=== PATIENT | male | born 1975 | race Caucasian/White ===

== ENCOUNTER → 2016-09-19 | Outpatient (CLI) | payer OTHER ==
[~2016-09-19] MED LIST: LEVO25TABR OR; OMEP20TA7 OR; SERO400T OR
[2016-09-19 12:48] LABS: FREE T4 1.55 NG/DL (0.76-1.46)
== END ==
LOC: M LAB 11:19
PROVIDERS: ATTEND Physician Assistant Medical
DX: E04.1 Nontoxic single thyroid nodule (principal)

== ENCOUNTER → 2016-12-23 | Outpatient (CLI) | payer OTHER ==
[2016-12-23 11:25] LABS: FREE T4 1.25 NG/DL (0.76-1.46)
== END ==
LOC: M LAB 10:06
PROVIDERS: ATTEND Physician Assistant Medical
DX: R94.6 Abnormal results of thyroid function studies (principal)

== ENCOUNTER 2019-01-25 15:21 | Inpatient (IN) | payer OTHER ==
[~2019-01-25] VITALS: Ht 170.2 cm; Wt 66.1 kg
[~2019-01-25 15:21] MED LIST changes: +BIMA01SOL OP; +BIMA01SOL OU; +DEPA1TAB PO; +DEPA500T2 PO; +HYDRO50TAB PO; +KLON1TAB PO; +LITH300C PO; +PROP10TA55 PO; +SYNT125T PO; +TRAZO50TA PO; +XANA0.25 PO
[2019-01-25] MEDS ORDERED: LEVO125T4 PO (15:31)
[2019-01-25] MEDS ORDERED: ROSU10TA5 PO (15:31)
[2019-01-25] MEDS ORDERED: DIVA250T67 PO (15:31)
[2019-01-25] MEDS ORDERED: CLON1TAB8 PO (15:31)
[2019-01-25 16:36] LABS: HEMATOCRIT 46.9 % (42.0-52.0); HEMOGLOBIN 15.9 g/dl (13.5-17.5); MEAN CORPUSCULAR HEMOGLOBIN 32.9 pg (27.0-33.0); MEAN CORPUSCULAR HGB CONC 33.9 g/dl (32.0-36.5); MEAN CORPUSCULAR VOLUME 96.9 fl (80.0-96.0); PLATELET COUNT, AUTOMATED 453 10^3/uL (150-450); RED BLOOD COUNT 4.84 10^6/uL (4.30-6.10); WHITE BLOOD COUNT 9.2 10^3/uL (4.0-10.0)
[2019-01-25 16:49] LABS: ACETAMINOPHEN LEVEL < 2.0 UG/ML (10.0-30.0); ALBUMIN 4.2 GM/DL (3.2-5.2); ALT/SGPT 19 U/L (12-78); BILIRUBIN,DIRECT 0.1 MG/DL (0.0-0.2); BILIRUBIN,TOTAL 0.5 MG/DL (0.2-1.0); BLOOD UREA NITROGEN 10 MG/DL (7-18); CALCIUM LEVEL 8.5 MG/DL (8.5-10.1); CARBON DIOXIDE LEVEL 25 MEQ/L (21-32); CHLORIDE LEVEL 105 MEQ/L (98-107); CREATININE FOR GFR 0.88 MG/DL (0.70-1.30); ETHYL ALCOHOL (ETHANOL) 0.317 % (0.000-0.010); GLOMERULAR FILTRATION RATE > 60.0 (>60); GLUCOSE, FASTING 94 MG/DL (70-100); POTASSIUM SERUM 3.8 MEQ/L (3.5-5.1); SALICYLATE LEVEL 1.8 MG/DL (5.0-30.0); SODIUM LEVEL 139 MEQ/L (136-145)
[2019-01-25 18:04] LABS: AMPHETAMINES LEVEL URINE NEGATIVE (NEGATIVE); BARBITURATES URINE NEGATIVE (NEGATIVE); BENZODIAZEPINES URINE NEGATIVE (NEGATIVE); CANNABINOIDS URINE NEGATIVE (NEGATIVE); COCAINE METABOLITE URINE NEGATIVE (NEGATIVE); METHADONE URINE NEGATIVE (NEGATIVE); OPIATES URINE NEGATIVE (NEGATIVE); PHENCYCLIDINE URINE NEGATIVE (NEGATIVE)
[2019-01-25] MEDS ORDERED: clonazePAM 1 MG TAB PO ONE (20:15)
[2019-01-26] MEDS ORDERED: LEVOTHYROXINE 125MCG TABLET (0.125MG) PO SCH (06:00)
[2019-01-26] MEDS: LEVOTHYROXINE 125MCG TABLET (0.125MG) PO SCH (08:30)
[2019-01-26] MEDS ORDERED: clonazePAM 1 MG TAB PO ONE (08:30)
[2019-01-26] MEDS ORDERED: LEVOTHYROXINE 125MCG TABLET (0.125MG) As Ordered ONE (08:49)
[2019-01-26] MEDS ORDERED: DIVALPROEX 250 MG TAB PO ONE (09:00)
[2019-01-26] MEDS ORDERED: NICOTINE 21MG/24HR 1 EA TRANSDERMAL TD ONE (11:45)
[2019-01-26] MEDS ORDERED: MAALOX 30 ML SUSP *UDC PO PRN (12:00)
[2019-01-26] MEDS ORDERED: ACETAMINOPHEN TAB 650MG DOSE (2X325MG) PO PRN (12:00)
[2019-01-26] MEDS ORDERED: MOM 30ML SUSPENSION UDC PO PRN (12:00)
[2019-01-26 14:02] VITALS: BP 123/74
[2019-01-26 18:06] VITALS: BP 112/59
[2019-01-26] MEDS: NICOTINE 21MG/24HR 1 EA TRANSDERMAL TD SCH (21:12)
[2019-01-26] MEDS: hydrOXYzine 50 MG TAB PO PRN (21:35)
[2019-01-26 21:43] VITALS: BP 136/81
[2019-01-27] MEDS ORDERED: LEVOTHYROXINE 125MCG TABLET (0.125MG) PO SCH (06:00)
[2019-01-27] MEDS: LEVOTHYROXINE 125MCG TABLET (0.125MG) PO SCH (06:45)
[2019-01-27 06:49] VITALS: BP 137/82
[2019-01-27 08:00] VITALS: BP 132/78
[2019-01-27] MEDS: hydrOXYzine 50 MG TAB PO PRN ×2 (09:04→20:32)
[2019-01-27] MEDS: NICOTINE 21MG/24HR 1 EA TRANSDERMAL TD SCH (09:04)
--- NOTE | 2019-01-27 11:06 | MHHPEPDOC ---
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 Pt admitted to binge drink alcohol to self medicate depression in the ED. Per ED, pt stated the prior to presenting he and his had argument and she told him she didn't want him around to he packed his belongings and a [employer] hose from work and left. Stated he left with the hose to commit suicide by CO in the ED. Pt per ED stated that he had spoken with a friend on the phone who encouraged him to come to the ED so he came and parked in the garage binge drinking for several hours until he finally came in to be seen. Per ED, he continued to endorse depression, SI, and hopelessness. BAL 0.317 Psychiatric Review of Systems Depression (2 or more weeks): depressed mood, feelings of worthlesness, difficulty concentrating, suicidal thoughts Fadumo (4 or more days of): denies Psychosis: denies PTSD: denies Anxiety: situational anxiety, stressor related anxiety Anxiety/ 6 months or more of: restlessness, keyed up, difficulty concentrating, irritability Past Psychiatric History Previous Psychiatric Diagnosis: bipolar depression, alcohol use d/o Previous Psychiatric Admissions: multiple admission [facility] in past, last 03/27/18. Once at [facility] all for depression Suicide Attempts: denies Psychiatric Follow-up: [facility] (last d/c to 03/2018) Psychiatric medications: depakote 250mg bid, klonopin 1mg tid Past Medical History Medical Problems Hypothyroidism, history of Hodgkin's lymphoma as a teenager Head Injury: No Seizures: No Hospitalizations: Yes Surgeries: No Family Medical/Psychiatric HX Medical Problems noncontributory Psychiatric Disorders: Yes (for bipolar disorder on his father's side of family) Addiction: No Suicide Attemps/Completions: No Addiction History alcohol (daily use BAL 0.317) Social History Childhood: born and raised in [place]. 2 parent home, 2 sisters he still has a good relationship with. Good childhood Abuse/Trauma:denies Current Living Situation: lives with and 3 biological children and 3 step- children Education: high school grad. 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 Social Support: family Legal: denies Marital: , 3 biological children and 3 step-children Mental Status Examination General Appearance: well groomed, appears stated age, hospital scubs/clothing, other (long hair) Build: thin Demeanor: withdrawn Eye Contact: fair Activity: anxious Behavior: cooperative, anhedonia Speech: clear, normal volume, reg/rate,rhythm,volume Mood: depressed, anxious Mood depressed Affect: constricted, flat, congruent, anxious Thought Process: logical/linear, depressed, slow, intact Thought Content (Delusions): none reported, denies SI, HI, AVH Thought Content (Other): none reported, appropriate Thought Content (Aggressive): none reported Perception (Hallucinations): none reported Perception (Other): none reported Cognition (Impairment of): none reported Cognition(Intelligence Est.): average Oriented: Awake, Alert, Oriented times three Insight: fair Judgment: Fair Psychosis: Denies Diagnoses Bipolar 1 disorder mse depressed w/o psychosis alcohol/benzo use d/o A-FIB/CHADSVASC A-FIB History Current/History of A-Fib/PAF?: No Current Oral Anticoagulant The: No Treatment Treatment ordered: NONE Reason Anticoagulant not given: Not indicated/[id number] Assessment Pt seen and states that he and has have been having problems for which he is the most to blame b/c he hasn't been taking care of himself very well. States he started feeling "not quite right" about a month ago after coming [place] vacation in [place] that had been great "then had to come back to the grind... I have problems with the grind." States that due to his and his 's differing work schedules he spends a lot of time alone which isn't good. States he's been self medicating with alcohol which doesn't help the situation. States he believes that changing his job situation will ultimately improve his mood. States he only takes his klonopin as directed and never takes more than he should. [facility] and [facility]opin. Recently started depakote as it was helpful in the past for manic symptoms but doesn't feel like it's helping. Has tried vraylar that "made me sick" and latuda "put me into a fog and gave me stomach upset." Discussed meds possibilities for treating depressive symptoms and agreeable to starting rexulti for mood, risks/benefits discussed. Denies SI/HI, hallucinations, delusions today. Feels safe here. Initial Treatment Plan 1. Patient was admitted on a 9.39 status. 2. Complete history was obtained. 3. With patients permission, family will be contacted and database will be expanded. 4. Patients medication regimen will be reviewed and changed accordingly. 5. Patient will be provided with protected environment. 6. Patient will be treated with individual, group, and milieu therapies. 7. Patient will receive supportive psych-education. 8. Discharge planning will commence immediately. 9. Outpatient follow-up treatment will be strongly recommended. 10. The initial treatment plan will focus initially on: * Depression. * Risk for suicide. * Substance abuse. [facility]. [facility], depakote 250mg bid, rexulti 1mg daily, atarax 50mg q6hr prn anxiety ESTIMATED LENGTH OF STAY: 5-7 DAYS. TIME SPENT COUNSELING AND COORDINATING INITIAL CARE:60 minutes. Vital Signs Vital Signs Date Time Temp Pulse Resp B/P (MAP) Pulse Ox O2 Delivery O2 Flow Rate FiO2 01/27/19 08:00 118 132/78 01/27/19 06:49 98.1 14 01/26/19 15:22 Room Air 01/26/19 14:02 100 Medications Scheduled Divalproex Sodium (Divalproex Sodium) 250 Mg Tablet.dr, 250 MG PO BID, (Reported) Levothyroxine Sodium (Levothyroxine Sodium) 125 Mcg Tablet, 125 MCG PO DAILY, (Reported) Rosuvastatin Calcium (Rosuvastatin Calcium) 10 Mg Tablet, 10 MG PO DAILY, (Reported) Scheduled PRN Clonazepam (Clonazepam) 1 Mg Tablet, 1 MG PO TID PRN for ANXIETY/AGITATION, (Reported) Allergies Coded Allergies: prochlorperazine (Verified Allergy, Unknown, 01/25/19) paralysis shellfish derived (Verified Allergy, Unknown, 01/25/19) paralysis ILSA DEAL DO January 27, 2019 11:06
[2019-01-27] MEDS ORDERED: BREXPIPRAZOLE 0.5MG TABLET (REXULTI) PO ONE (11:15)
[2019-01-27] MEDS ORDERED: DIVALPROEX 250 MG TAB PO ONE (11:15)
[2019-01-27 14:00] VITALS: BP 136/72
[2019-01-27 17:23] VITALS: BP 136/74
[2019-01-27] MEDS: DIVALPROEX 250 MG TAB PO SCH (20:32)
[2019-01-28] MEDS: LEVOTHYROXINE 125MCG TABLET (0.125MG) PO SCH (06:37)
[2019-01-28 06:48] VITALS: BP 120/80
[2019-01-28] MEDS: DIVALPROEX 250 MG TAB PO SCH ×2 (08:42→20:07)
[2019-01-28] MEDS: NICOTINE 21MG/24HR 1 EA TRANSDERMAL TD SCH (08:43)
[2019-01-28] MEDS ORDERED: BREXPIPRAZOLE 0.5MG TABLET (REXULTI) PO SCH (09:00)
[2019-01-28] MEDS: hydrOXYzine 50 MG TAB PO PRN (10:12)
--- NOTE | 2019-01-28 12:21 | MHIPNPDOC ---
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 Pt admitted to binge drink alcohol to self medicate depression in the ED. Per ED, pt stated the prior to presenting he and his had argument and she told him she didn't want him around to he packed his belongings and a [employer] hose from work and left. Stated he left with the hose to commit suicide by CO in the ED. Pt per ED stated that he had spoken with a friend on the phone who encouraged him to come to the ED so he came and parked in the garage binge drinking for several hours until he finally came in to be seen. Per ED, he continued to endorse depression, SI, and hopelessness. BAL 0.317 VITAL SIGNS: See below. NEW TEST RESULTS: See below CURRENT MEDICATIONS: See below. MENTAL STATUS EXAMINATION: General Appearance: well groomed, appears stated age, hospital scrubs/clothing, other (long hair) Build: thin Demeanor: withdrawn, poor eye contact Eye Contact: fair Activity: anxious Behavior: cooperative, anhedonia, anxious, depressed Speech: clear, normal volume, reg/rate,rhythm,volume. His voice sounds shaky, tremulous Mood: depressed, anxious Mood depressed Affect: constricted, flat, congruent, anxious Thought Process: logical/linear, depressed, slow, intact Thought Content (Delusions): none reported, denies SI, HI, AVH. Thought Content (Other): He is goal directed, he would like to go to a different provider, he wants to make it up for his fiancee because he thinks that he failed her. He has guilty thoughts, he has low self esteem Thought Content (Aggressive): none reported Perception (Hallucinations): none reported Perception (Other): none reported Cognition (Impairment of): none reported Cognition(Intelligence Est.): average Oriented: Awake, Alert, Oriented times three Insight: fair Judgment: Fair Psychosis: Denies Diagnoses Bipolar 1 disorder mse depressed w/o psychosis alcohol/benzo use d/o ASSESSMENT: Patient is still anxious, he says this is the way that he has been for a long time, he regrets coming to [facility] because that makes him feel like a failure and he regrets not being able to take his Klonopin that was prescribed at 1 mg PO TIDP by an outside provider. He says he has never mixed medications with alcohol but he recently used ETOH because he was feeling very hopeless but he is not feeling like that now. 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 MANAGEMENT PLAN: Increase ?Rexultito 2 mgs Po daily TIME SPENT: 15 minutes. Vital Signs Vital Signs Date Time Temp Pulse Resp B/P (MAP) Pulse Ox O2 Delivery O2 Flow Rate FiO2 01/28/19 06:48 99.0 95 16 120/80 (93) 01/26/19 15:22 Room Air 01/26/19 14:02 100 Current Medications Current Medications Acetaminophen (Tylenol Tab) 650 mg Q6HP PRN PO HEADACHE or DISCOMFORT; Start 01/26/19 at 12:00 Al Hydrox/Mg Hydrox/Simethicone (Mylanta) 30 ml Q4HP PRN PO HEARTBURN/INDIGESTION; Start 01/26/19 at 12:00 Brexpiprazole (Rexulti) 1 mg DAILY PO Last administered on 01/28/19at 08:42; Start 01/28/19 at 09:00 Divalproex Sodium (Depakote) 250 mg BID PO Last administered on 01/28/19at 08:42; Start 01/27/19 at 21:00 Home Med (Med Rec Complete!) ASDIRECTED XX ; Start 01/26/19 at 12:15; Stop 01/26/19 at 12:15; Status DC Hydroxyzine HCl (Atarax) 50 mg Q6HP PRN PO ANXIETY Last administered on 01/28/19at 10:12; Start 01/26/19 at 21:15 Levothyroxine Sodium (Synthroid) 125 mcg DAILY@06 PO Last administered on 01/28/19at 06:37; Start 01/26/19 at 06:00 Levothyroxine Sodium (Synthroid) 125 mcg DAILY@06 PO ; Start 01/26/19 at 06:00; Status Cancel Levothyroxine Sodium (Synthroid) 125 mcg DAILY@06 PO ; Start 01/27/19 at 06:00; Stop 01/27/19 at 06:00; Status DC Magnesium Hydroxide (Milk Of Magnesia) 30 ml DAILYPRN PRN PO CONSTIPATION; Start 01/26/19 at 12:00 Nicotine (Nicoderm Cq 21mg) 1 patch DAILY TD Last administered on 01/28/19at 08:43; Start 01/26/19 at 21:12 Trazodone HCl (Desyrel) 50 mg QHSP PRN PO INSOMNIA; Start 01/26/19 at 12:00 Allergies Coded Allergies: prochlorperazine (Verified Allergy, Unknown, 01/25/19) paralysis shellfish derived (Verified Allergy, Unknown, 01/25/19) paralysis A-FIB/CHADSVASC A-FIB History Current/History of A-Fib/PAF?: No Current Oral Anticoagulant The: No Age/Risk Factor Scoring CHADSVASC: CHADSVASC Response (Comments) Value Age Risk Factor Age < 65 years old 0 Gender Risk Factor Male 0 Hx of CHF No 0 Hx of HTN No 0 Hx of Stroke/TIA/or VTE No 0 Hx of Diabetes No 0 Hx of Vascular Disease No 0 Total 0 Treatment Treatment ordered: NONE Reason Anticoagulant not given: Not indicated/[id number] LA NARAYAN MD January 28, 2019 12:19
[2019-01-28 18:00] VITALS: BP 127/78
[2019-01-28] MEDS: traZODone 50 MG TAB PO PRN (21:58)
[2019-01-29] MEDS: LEVOTHYROXINE 125MCG TABLET (0.125MG) PO SCH (06:13)
[2019-01-29 06:37] VITALS: BP 137/84
[2019-01-29 06:45] VITALS: BP 137/84
[2019-01-29] MEDS: DIVALPROEX 250 MG TAB PO SCH ×2 (08:12→20:04)
[2019-01-29] MEDS: BREXPIPRAZOLE 2MG TABLET (REXULTI) PO SCH (08:12)
[2019-01-29] MEDS: NICOTINE 21MG/24HR 1 EA TRANSDERMAL TD SCH (08:13)
[2019-01-29] MEDS: hydrOXYzine 50 MG TAB PO PRN ×2 (09:50→19:43)
--- NOTE | 2019-01-29 15:07 | HPEPDOC ---
General Date of Admission January 26, 2019 at 11:58 Attending Physician: HEBER AVALOS MD Chief Complaint The patient is a 43-year-old male admitted with a reason for visit of [facility]. Source: Patient History of Present Illness 43-year-old male, past medical history significant for hypothyroidism, Hodgkins lymphoma, alcohol abuse, bipolar depression, admitted to inpatient psychiatric unit for worsening depression and suicidal ideation. It is documented. Patient has been feeling increasingly depressed due to home situation and had been binge drinking alcohol to self medicate his depression. On presentation, his blood alcohol level was 0.317. On evaluation, patient denies any malaise, pain, chest pain, shortness of breath, abdominal pain, nausea, diarrhea, constipation Home Medications Scheduled Divalproex Sodium (Divalproex Sodium) 250 Mg Tablet.dr, 250 MG PO BID, (Reported) Levothyroxine Sodium (Levothyroxine Sodium) 125 Mcg Tablet, 125 MCG PO DAILY, (Reported) Rosuvastatin Calcium (Rosuvastatin Calcium) 10 Mg Tablet, 10 MG PO DAILY, (Reported) Scheduled PRN Clonazepam (Clonazepam) 1 Mg Tablet, 1 MG PO TID PRN for ANXIETY/AGITATION, (Reported) Allergies Coded Allergies: prochlorperazine (Verified Allergy, Unknown, 01/25/19) paralysis shellfish derived (Verified Allergy, Unknown, 01/25/19) paralysis Past Medical History Medical History Hyperlipidemia Hypothyroidism Alcohol abuse Depression and anxiety Bipolar disorder Hodgkin's lymphoma Surgical History Thyroidectomy Appendectomy Exploratory laparoscopy Lymph node Biopsy Social History Vapes, binge alcohol drinking. Denies polysubstance abuse A-FIB/CHADSVASC A-FIB History Current/History of A-Fib/PAF?: No Current Oral Anticoagulant The: No Age/Risk Factor Scoring CHADSVASC: CHADSVASC Response (Comments) Value Age Risk Factor Age < 65 years old 0 Gender Risk Factor Male 0 Hx of CHF No 0 Hx of HTN No 0 Hx of Stroke/TIA/or VTE No 0 Hx of Diabetes No 0 Hx of Vascular Disease No 0 Total 0 Review of Systems Other systems A 10 point pertinent review of systems was completed, negative except as stated in the history of presenting illness Physical Examination Other physical findings GENERAL: NAD SKIN : Warm, dry intact HEENT: Atraumatic, normocephalic, PERRL, moist mucous membrane CV: Regular rate and rhythm, S1S2, no JVD, no edema, distal pulses + and palpable RESP: CTAB, no accessory muscle use noted ABDOMEN: BS+ non distended non tender MS: no joint deformities NEURO: Alert and oriented x 3, CN2-12 grossly intact PSYCH: no anxiety or agitation, appropriate mood and affect. Vital Signs Vital Signs Date Time Temp Pulse Resp B/P (MAP) Pulse Ox O2 Delivery O2 Flow Rate FiO2 01/29/19 06:45 92 137/84 01/29/19 06:37 98.4 16 01/26/19 15:22 Room Air 01/26/19 14:02 100 Assessment/Plan Hyperlipidemia Hypothyroidism Bipolar depression. Suicidal ideation Alcohol abuse PLAN Restart patient on statin medication He was on as outpatient Continue Synthroid at current dose Other underlying comorbidities are stable Primary team for management of acute mental health issues. Patient does not require active follow-up for medical problems which is stable at this time Please reconsult. Medical team if needed Plan / VTE VTE Prophylaxis Ordered?: No VTE Exclusion Mechanical Proph: Low Risk for VTE STARR PERKINS January 29, 2019 15:07
[2019-01-29 15:51] VITALS: BP 143/89
[2019-01-29 18:00] VITALS: BP 138/87
--- NOTE | 2019-01-29 18:44 | MHIPNPDOC ---
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 Pt admitted to binge drink alcohol to self medicate depression in the ED. Per ED, pt stated the prior to presenting he and his had argument and she told him she didn't want him around to he packed his belongings and a [employer] hose from work and left. Stated he left with the hose to commit suicide by CO in the ED. Pt per ED stated that he had spoken with a friend on the phone who encouraged him to come to the ED so he came and parked in the garage binge drinking for several hours until he finally came in to be seen. Per ED, he continued to endorse depression, SI, and hopelessness. BAL 0.317 VITAL SIGNS: See below. NEW TEST RESULTS: See below CURRENT MEDICATIONS: See below. MENTAL STATUS EXAMINATION: General Appearance: well groomed, appears stated age, hospital scrubs/clothing, other (long hair) Build: thin Demeanor: Pleasant, cooperative, alittle anxious Eye Contact: better, not that avoidant as before Activity: anxious (less anxious) Behavior: cooperative, pleasant Speech: clear, normal volume, reg/rate,rhythm,volume. Mood: euthymic Mood brighter, improved Affect: constricted, flat, congruent, anxious Thought Process: logical/linear, depressed, slow, intact Thought Content (Delusions): none reported, denies SI, HI, AVH. Thought Content (Other): He is goal directed, he is optimistic Thought Content (Aggressive): none reported Perception (Hallucinations): none reported Perception (Other): none reported Cognition (Impairment of): none reported Cognition(Intelligence Est.): average Oriented: Awake, Alert, Oriented times three Insight: fair Judgment: Fair Psychosis: Denies Diagnoses Bipolar 1 disorder mse depressed w/o psychosis alcohol/benzo use d/o ASSESSMENT: Patient is improved, he is not suicidal, homicidal, not psychotic. His anxiety levels have decreased, he is much better. MANAGEMENT PLAN: TIME SPENT: 15 minutes. Vital Signs Vital Signs Date Time Temp Pulse Resp B/P (MAP) Pulse Ox O2 Delivery O2 Flow Rate FiO2 01/29/19 15:51 98 143/89 01/29/19 06:37 98.4 16 01/26/19 15:22 Room Air 01/26/19 14:02 100 Current Medications Current Medications Acetaminophen (Tylenol Tab) 650 mg Q6HP PRN PO HEADACHE or DISCOMFORT; Start 01/26/19 at 12:00 Al Hydrox/Mg Hydrox/Simethicone (Mylanta) 30 ml Q4HP PRN PO HEARTBURN/INDIGESTION; Start 01/26/19 at 12:00 Brexpiprazole (Rexulti) 1 mg DAILY PO Last administered on 01/28/19at 08:42; Start 01/28/19 at 09:00; Stop 01/28/19 at 12:33; Status DC Brexpiprazole (Rexulti) 2 mg DAILY PO Last administered on 01/29/19at 08:12; Start 01/29/19 at 09:00 Divalproex Sodium (Depakote) 250 mg BID PO Last administered on 01/29/19at 08:12; Start 01/27/19 at 21:00 Home Med (Med Rec Complete!) ASDIRECTED XX ; Start 01/26/19 at 12:15; Stop 01/26/19 at 12:15; Status DC Hydroxyzine HCl (Atarax) 50 mg Q6HP PRN PO ANXIETY Last administered on 01/29/19at 09:50; Start 01/26/19 at 21:15 Levothyroxine Sodium (Synthroid) 125 mcg DAILY@06 PO Last administered on 01/29/19at 06:13; Start 01/26/19 at 06:00 Levothyroxine Sodium (Synthroid) 125 mcg DAILY@06 PO ; Start 01/26/19 at 06:00; Status Cancel Levothyroxine Sodium (Synthroid) 125 mcg DAILY@06 PO ; Start 01/27/19 at 06:00; Stop 01/27/19 at 06:00; Status DC Magnesium Hydroxide (Milk Of Magnesia) 30 ml DAILYPRN PRN PO CONSTIPATION; Start 01/26/19 at 12:00 Nicotine (Nicoderm Cq 21mg) 1 patch DAILY TD Last administered on 01/29/19at 08:13; Start 01/26/19 at 21:12 Rosuvastatin Calcium (Crestor) 10 mg QPM PO ; Start 01/29/19 at 21:00 Trazodone HCl (Desyrel) 50 mg QHSP PRN PO INSOMNIA Last administered on 01/28/19at 21:58; Start 01/26/19 at 12:00 Allergies Coded Allergies: prochlorperazine (Verified Allergy, Severe, PARALYSIS, 01/29/19) shellfish derived (Verified Allergy, Severe, PARALYSIS, 01/29/19) LA NARAYAN MD January 29, 2019 18:44
[2019-01-29 20:57] VITALS: BP 138/87
[2019-01-29] MEDS ORDERED: ROSUVASTATIN 10 MG TAB (CRESTOR) PO SCH (21:00)
[2019-01-29] MEDS: traZODone 50 MG TAB PO PRN (22:09)
[2019-01-30] MEDS: LEVOTHYROXINE 125MCG TABLET (0.125MG) PO SCH (05:22)
[2019-01-30 06:56] VITALS: BP 153/84
[2019-01-30 07:19] LABS: CHOLESTEROL RISK RATIO 3.83 (<5)
[2019-01-30] MEDS: DIVALPROEX 250 MG TAB PO SCH (08:12)
[2019-01-30] MEDS: NICOTINE 21MG/24HR 1 EA TRANSDERMAL TD SCH (08:12)
[2019-01-30] MEDS: BREXPIPRAZOLE 2MG TABLET (REXULTI) PO SCH (08:12)
[2019-01-30] MEDS: hydrOXYzine 50 MG TAB PO PRN (09:26)
[2019-01-30] MEDS ORDERED: DIVA250T67 PO (10:43)
[2019-01-30] MEDS ORDERED: TRAZO50TA PO (10:43)
[2019-01-30] MEDS ORDERED: LEVO125T4 PO (10:43)
[2019-01-30] MEDS ORDERED: NICO21PAT TD (10:43)
[2019-01-30] MEDS ORDERED: REXU1TAB4 PO (10:43)
[2019-01-30] MEDS ORDERED: HYDRO50TAB PO (10:43)
[2019-01-30] MEDS ORDERED: ROSU10TA5 PO (10:43)
== END 2019-01-30 13:00 | disposition home or self-care (01) | DRG 885 ==
LOC: M ED 15:21 → M ED INP 01-26 11:58 → M PSY 01-26 13:52
PROVIDERS: ADMIT Psychiatry & Neurology Psychiatry; ATTEND Psychiatry & Neurology Psychiatry
DX: F31.30 Bipolar disorder, current episode depressed, mild or moderate severity, unspecified (principal); R45.851 Suicidal ideations; F10.10 Alcohol abuse, uncomplicated; F15.90 Other stimulant use, unspecified, uncomplicated; Z88.8 Allergy status to other drugs, medicaments and biological substances; Z91.013 Allergy to seafood; Z79.899 Other long term (current) drug therapy; E78.5 Hyperlipidemia, unspecified; E03.9 Hypothyroidism, unspecified

== ENCOUNTER 2021-04-14 21:51 | Inpatient (IN) | payer BC, OTHER ==
[~2021-04-14] VITALS: Ht 170.2 cm; Wt 68.8 kg
[~2021-04-14 21:51] MED LIST changes: +CLON1TAB8 PO; +DIVA250T67 PO; +HYDR1TAB33 PO; -HYDRO50TAB PO; +LEVO125T4 PO; +NICO21PAT TD; +REXU1TAB4 PO; +ROSU10TA6 PO; +TRAZ1TAB10 PO; -TRAZO50TA PO
[2021-04-14] MEDS ORDERED: LATU1TAB PO (22:35)
[2021-04-14] MEDS ORDERED: NICOTINE 21MG/24HR 1 EA TRANSDERMAL TD ONE (22:40)
[2021-04-14 22:51] LABS: HEMATOCRIT 44.8 % (42.0-52.0); HEMOGLOBIN 15.6 g/dl (13.5-17.5); MEAN CORPUSCULAR HEMOGLOBIN 32.6 pg (27.0-33.0); MEAN CORPUSCULAR HGB CONC 34.8 g/dl (32.0-36.5); MEAN CORPUSCULAR VOLUME 93.7 fl (80.0-96.0); PLATELET COUNT, AUTOMATED 484 10^3/uL (150-450); RED BLOOD COUNT 4.78 10^6/uL (4.30-6.10); WHITE BLOOD COUNT 7.4 10^3/uL (4.0-10.0)
[2021-04-14 23:25] LABS: AMPHETAMINES LEVEL URINE NEGATIVE (NEGATIVE); BARBITURATES URINE NEGATIVE (NEGATIVE); BENZODIAZEPINES URINE NEGATIVE (NEGATIVE); CANNABINOIDS URINE NEGATIVE (NEGATIVE); COCAINE METABOLITE URINE NEGATIVE (NEGATIVE); METHADONE URINE NEGATIVE (NEGATIVE); OPIATES URINE NEGATIVE (NEGATIVE); PHENCYCLIDINE URINE NEGATIVE (NEGATIVE)
[2021-04-14 23:31] LABS: ACETAMINOPHEN LEVEL < 2.0 UG/ML (10.0-30.0); ALBUMIN 3.9 GM/DL (3.2-5.2); ALT/SGPT 28 U/L (12-78); BILIRUBIN,DIRECT < 0.1 MG/DL (0.0-0.2); BILIRUBIN,TOTAL 0.4 MG/DL (0.2-1.0); BLOOD UREA NITROGEN 9 MG/DL (7-18); CARBON DIOXIDE LEVEL 26 MEQ/L (21-32); CHLORIDE LEVEL 107 MEQ/L (98-107); CREATININE FOR GFR 0.82 MG/DL (0.70-1.30); ETHYL ALCOHOL (ETHANOL) 0.224 % (0.000-0.010); GLOMERULAR FILTRATION RATE > 60.0 (>60); GLUCOSE, FASTING 92 MG/DL (70-100); SALICYLATE LEVEL < 1.7 MG/DL (5.0-30.0); SODIUM LEVEL 141 MEQ/L (136-145); THYROID STIMULATING HORMONE 0.084 uIU/ML (0.358-3.740); TOTAL PROTEIN 7.7 GM/DL (6.4-8.2)
[2021-04-15] MEDS ORDERED: LEVO112T2 PO (05:21)
[2021-04-15] MEDS ORDERED: ROSU20TA5 PO (05:21)
[2021-04-15] MEDS ORDERED: CIAL20TA PO (05:21)
[2021-04-15] MEDS ORDERED: HOME MED LIST COMPLETE! XX SCH (05:25)
[2021-04-15] MEDS ORDERED: LORazepam 2 MG TAB PO PRN ×2 (07:25→11:55)
--- NOTE | 2021-04-15 07:58 | ECGEPIP ---
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
[2021-04-15 08:03] LABS: RSV AMPLIFICATION NEGATIVE (NEGATIVE)
[2021-04-15] MEDS: NICOTINE 21MG/24HR 1 EA TRANSDERMAL TD SCH (09:00)
[2021-04-15] MEDS ORDERED: FOLIC ACID 1 MG TAB PO SCH (09:00)
[2021-04-15] MEDS ORDERED: THIAMINE 100 MG TAB PO SCH (09:00)
[2021-04-15] MEDS ORDERED: MULTIVITAMINS/MINERALS THERAP 1 TAB PO SCH (09:00)
[2021-04-15] MEDS ORDERED: clonazePAM 1 MG TAB PO ONE (10:05)
[2021-04-15] MEDS ORDERED: MOM 30ML SUSPENSION UDC PO PRN (11:55)
[2021-04-15] MEDS ORDERED: MAALOX 30 ML SUSP *UDC PO PRN (11:55)
[2021-04-15] MEDS ORDERED: traZODone 50 MG TAB PO PRN (11:55)
[2021-04-15] MEDS ORDERED: IBUPROFEN 400MG TAB PO PRN (11:55)
[2021-04-15 16:25] VITALS: BP 144/70
[2021-04-15] MEDS: LORazepam 1 MG TAB PO PRN (18:19)
[2021-04-15] MEDS: THIAMINE 100 MG TAB PO SCH (20:08)
[2021-04-15 22:06] VITALS: BP 166/88
[2021-04-16] MEDS: LORazepam 1 MG TAB PO PRN ×2 (03:44→10:27)
[2021-04-16 05:58] VITALS: BP 128/74
[2021-04-16 06:00] VITALS: BP 128/74
[2021-04-16] MEDS: NICOTINE 21MG/24HR 1 EA TRANSDERMAL TD SCH (08:12)
[2021-04-16] MEDS: THIAMINE 100 MG TAB PO SCH (08:12)
[2021-04-16] MEDS ORDERED: FOLIC ACID 1 MG TAB PO SCH (09:00)
[2021-04-16] MEDS ORDERED: MULTIVITAMINS/MINERALS THERAP 1 TAB PO SCH (09:00)
--- NOTE | 2021-04-16 11:42 | MHHPEPDOC ---
General Date Of Admission: Apr 15, 2021 Legal Status: 9.39 Chief Complaint "I was drinking, I got a DWI and when I was at the police station, I said some things that I shouldn't have, I don't even remember what I said and they brought me here." History of Present Illness HISTORY OF THE PRESENT ILLNESS: Patient is a 45 -year-old Single, Unemployed, Domiciled , male, who reports that he made a suicidal statement when he was arrested for driving while intoxicated. He states that when he was at the police station that he made a statement that he can't remember saying but that he was then transported to [facility] ED for making the statement. He states that over the course of a few months he has been dealing with depression. He states that he is diagnosed with Bipolar I Disorder. States that on Monday he decided to drink, was arrested for the DWI and "talked about harming myself while under the influence, I don't remember what I said. " And in the interview he states that he is not feeling suicidal. "At the time, the situation made me feel that way. I can rationalize that I have problems but I can get through it" States his stressors are his depression, now the DWI and being very upset with himself that he is going to miss daughter's graduation part because he is admitted to the hospital. PER ED REPORT: Pt arrested for DWI last night, expressed SI to Police after arrest, has Hx of depression/SI and ETOH issues, also prior psych admissions to [facility]. Pt is clinically sober, A&Ox3, answers all questions appropriately, admits to getting DWI last night after drinking at home, continues to voice SI at this time. PT reports he had been increasingly depressed recently due to unemployment and relationship issues, states he lives with his fiance but fears this incident may change her thoughts on their relationship. Pt states "I feel ashamed", adds that he drinks "occasionally" and uses cannabis as well however denies any ongoing substance abuse. Pt denies HI/AH/VH, reports prior suicide attempt by attaching hose to car exhaust and running hose thru window, denies any specific plan currently but states "anything that will do it quick". PT is calm/cooperative, continues to voice SI with intent, cannot CFS, reports compliance with outpt tx and medications, has several prior psych admissions to [facility]. Suicide risk assessment Historical risk enhancing factors 1. One past suicide attempt, according to the patient this was aborted 2. 45 years old 3. Male gender 4. Past inpatient psychiatric treatment 5. Unemployed Clinical risk enhancing factors 1. Depression 2. Alcohol use 3. Patient does not appear to have any hopelessness or pessimism no observation of irritation agitation or anger, he is not psychotic, no reports of chronic physical illness or chronic pain 4. He has an established provider Acute risk enhancing factors 1. Heavy alcohol use within the past 48 hours 2. Patient has no rumination about the he has no acts of anticipation, no planning or intent, he is not psychotic Risk reducing factors 1. Patient has future orientation 2. He has a fiance with whom he lives 3. Motivated to go to his youngest child's graduation republican 4. He is absent of suicidal ideation intent or planning 5. He appears hopeful 6. Currently has treatment with an established provider 7. He is stable and has low severity of any psychiatric symptoms 8. Med compliant Patient suicide risk assessment is low Psychiatric Review of Systems Depression (2 or more weeks): depressed mood, anhedonia (noticed in September that he was more depressed. ), insomnia/hypersomnia (excessive sleeping, would go to bed at 8:30 averaging 10 hours of sleep. ), suicidal thoughts, other (was pulled out of work for depresssion was working at [employer], ) F[place]umo (4 or more days of): denies Psychosis: denies PTSD: denies Anxiety: denies Past Psychiatric History Previous Psychiatric Diagnosis: Bipolar I disorder Previous Psychiatric Admissions: Last admission 2018, has had multiple admissions Suicide Attempts: 2019 drank and tried to hook shop vac into car and exhaust but this was aborted. Psychiatric Follow-up: Telehealth, December Private Practice Psychiatric medications: Abilify made me worse, Latuda was suppose to start taking 60 mg for a few months, Klonopin, . Past Medical History Medical Problems Surgery ; Hodgkin's Lymphoma survivor, exploratory lap, appendix removed, thyroid removed, Head Injury: Yes (brain bleed due to concussion 2016) Seizures: No Hospitalizations: Yes Surgeries: Yes Family Medical/Psychiatric HX Medical Problems Father side - Bipolar Psychiatric Disorders: Yes Addiction: No Suicide Attemps/Completions: No Addiction History nicotine (vapes), alcohol (binges and goes for months and then will go days and then will stop), other (history of cannabis use) Social History Childhood: Born in [place] Abuse/Trauma: Denies Current Living Situation: [place] with mona and her 3 children Education: Associate's degree in [place] [place] [employer] Employment: Unemployed was working at [employer] Social Support: Mona Legal: current DWI Marital: Engaged, has 3 children Mental Status Examination General Appearance: unkempt, disheveled, appears stated age, hospital scubs/clothing Build: thin Demeanor: average, guarded Eye Contact: average Activity: anxious Behavior: cooperative Speech: clear Mood: depressed, anxious Affect: constricted Thought Process: logical/linear Thought Content (Delusions): none reported Thought Content (Other): none reported Thought Content (Aggressive): none reported Perception (Hallucinations): none reported Perception (Other): none reported Cognition (Impairment of): none reported Cognition(Intelligence Est.): average Oriented: Awake, Alert, Oriented times three Insight: fair Judgment: Fair Psychosis: Denies Diagnoses Bipolar I Disorder, current episode with Depression Nicotine Use Disorder Alcohol Use Disorder A-FIB/CHADSVASC A-FIB History Current/History of A-Fib/PAF?: No Current PO Anticoag Therapy: No Assessment Patient is a 45-year-old engaged, unemployed, domiciled, male who was brought to the emergency room after making a suicidal statement during his arrest for driving while under the influence. In today's interview patient does admit to making self-harm statements denies that he can remember this statement, states that he was reacting from the situation. He reports that he started drinking on Monday, has a history of binge drinking reports that he can go months without drinking and then go a few days of drinking and then will stop for another few months. In today's interview he denies being suicidal reports depression and since September. States he is diagnosed bipolar one disorder and is taking Latuda he reports being med compliant and sees a provider via telemetry psychiatry. Patient denies any suicidal thinking planning or intent. Reports that he is depressed but that his depression was not a factor in his suicidal statement. At this time he is being discharged per his request patient does not demonstrate that he is a danger to himself and others and he states that he is wanting to go to his youngest child's graduation republican tomorrow. Initial Treatment Plan 1. Patient was admitted on a [9.39] status. 2. Complete history was obtained. 3. With patients permission, family will be contacted and database will be expanded. 4. Patients medication regimen will be reviewed and changed accordingly. 5. Patient will be provided with protected environment. 6. Patient will be treated with individual, group, and milieu therapies. 7. Patient will receive supportive psych-education. 8. Discharge planning will commence immediately. 9. Outpatient follow-up treatment will be strongly recommended. 10. The initial treatment plan will focus initially on: * Depression. * Risk for suicide. ESTIMATED LENGTH OF STAY: 1-3 DAYS. TIME SPENT COUNSELING AND COORDINATING INITIAL CARE: 60 minutes. Tobacco Cessation Screen Tobacco Cessation Tx Ordered?: No r/t failed trials N/A-No Antipsychotics Vital Signs Vital Signs Date Time Temp Pulse Resp B/P (MAP) Pulse Ox O2 Delivery O2 Flow Rate FiO2 04/16/21 06:00 116 128/74 04/16/21 05:58 98.5 18 95 Room Air Medications Scheduled Levothyroxine Sodium (Levothyroxine Sodium) 112 Mcg Tablet, 112 MCG PO DAILY, (Reported) Lurasidone HCl (Latuda) 60 Mg Tablet, 60 MG PO QPM, (Reported) TAKEN AFTER EVENING MEAL Nicotine (Nicotine Patch) 21 Mg Patch.td24, 1 PATCH TD DAILY for Nicotine Withdrawal Rosuvastatin Calcium (Rosuvastatin Calcium) 20 Mg Tablet, 20 MG PO QPM, (Reported) TAKEN AFTER EVENING MEAL Tadalafil (Cialis) 20 Mg Tablet, 20 MG PO ASDIRECTED, (Reported) Scheduled PRN Clonazepam (Clonazepam) 1 Mg Tablet, 1 MG PO BID PRN for ANXIETY/AGITATION, (Reported) Allergies Coded Allergies: prochlorperazine (Verified Allergy, Severe, PARALYSIS, 01/29/19) shellfish derived (Verified Allergy, Severe, PARALYSIS, 01/29/19) MAKAYLA CALLEJAS NP Apr 16, 2021 10:21
[2021-04-16] MEDS ORDERED: NICO21PAT TD (11:44)
--- NOTE | 2021-04-16 12:31 | MHDSPDOC ---
[facility] Discharge Summary Discharge Summary DATE OF ADMISSION: Apr 15, 2021 at 11:53 DATE OF DISCHARGE: April 16, 2021 at 1145 DISCHARGE DIAGNOSES: Bipolar I Disorder, current episode with Depression Nicotine Use Disorder Alcohol Use Disorder REASON FOR ADMISSION: Patient is a 45 -year-old Single, Unemployed, Domiciled , male, who reports that he made a suicidal statement when he was arrested for driving while intoxicated. He states that when he was at the police station that he made a statement that he can't remember saying but that he was then transported to [facility] ED for making the statement. He states that over the course of a few months he has been dealing with depression. He states that he is diagnosed with Bipolar I Disorder. States that on Monday he decided to drink, was arrested for the DWI and "talked about harming myself while under the influence, I don't remember what I said. " And in the interview he states that he is not feeling suicidal. "At the time, the situation made me feel that way. I can rationalize that I have problems but I can get through it" States his stressors are his depression, now the DWI and being very upset with himself that he is going to miss daughter's graduation part because he is admitted to the hospital. PER ED REPORT: Pt arrested for DWI last night, expressed SI to Police after arrest, has Hx of depression/SI and ETOH issues, also prior psych admissions to [facility]. Pt is clinically sober, A&Ox3, answers all questions appropriately, admits to getting DWI last night after drinking at home, continues to voice SI at this time. PT reports he had been increasingly depressed recently due to unemployment and relationship issues, states he lives with his fiance but fears this incident may change her thoughts on their relationship. Pt states "I feel ashamed", adds that he drinks "occasionally" and uses cannabis as well however denies any ongoing substance abuse. Pt denies HI/AH/VH, reports prior suicide attempt by attaching hose to car exhaust and running hose thru window, denies any specific plan currently but states "anything that will do it quick". PT is calm/cooperative, continues to voice SI with intent, cannot CFS, reports compli ance with outpt tx and medications, has several prior psych admissions to [facility]. Suicide risk assessment Historical risk enhancing factors 1. One past suicide attempt, according to the patient this was aborted 2. 45 years old 3. Male gender 4. Past inpatient psychiatric treatment 5. Unemployed Clinical risk enhancing factors 1. Depression 2. Alcohol use 3. Patient does not appear to have any hopelessness or pessimism no observation of irritation agitation or anger, he is not psychotic, no reports of chronic physical illness or chronic pain 4. He has an established provider Acute risk enhancing factors 1. Heavy alcohol use within the past 48 hours 2. Patient has no rumination about the he has no acts of anticipation, no planning or intent, he is not psychotic Risk reducing factors 1. Patient has future orientation 2. He has a fiance with whom he lives 3. Motivated to go to his youngest child's graduation green party 4. He is absent of suicidal ideation intent or planning 5. He appears hopeful 6. Currently has treatment with an established provider 7. He is stable and has low severity of any psychiatric symptoms 8. Med compliant Patient suicide risk assessment is low VITAL SIGNS: See below. CONSULTANTS INVOLVED: See Medical H + P by Hospitalist TREATMENT AND PROGRESS ON THE UNIT: Patient was admitted to the [facility] on a 9.39 legal status he was afforded the following treatment modalities: 1) Individual Therapy 2) Group Therapy 3) Medication Management 4) Milieu Therapy 5) Safe Environment HOSPITAL COURSE: Patient is a 45-year-old engaged, unemployed, domiciled, male who was brought to the emergency room after making a suicidal statement during his arrest for driving while under the influence. He was admitted to my service on a 9.39 on inpatient psychiatric unit. In today's interview patient does admit to making self-harm statements denies that he can remember this statement, states that he was reacting from the situation. He reports that he started drinking on Monday, has a history of binge drinking reports that he can go months without drinking and then go a few days of drinking and then will stop for another few months. In today's interview he denies being suicidal reports depression and since September. States he is diagnosed bipolar one disorder and is taking Latuda he reports being med compliant and sees a provider via telemetry psychiatry. Patient denies any suicidal thinking planning or intent. Reports that he is depressed but that his depression was not a factor in his suicidal statement. At this time he is being discharged per his request patient does not demonstrate that he is a danger to himself and others and he states that he is wanting to go to his youngest child's graduation green party tomorrow. DISCHARGE ASSESSMENT: In today's interview, patient is alert and oriented, pts dress is appropriate. Hygiene and grooming is well-kempt. Smiles on approach and is pleasant and engaged in the interview. Reports depression and some anxiety. Denies suicidal and homicidal ideation, planning or intent. Denies and is not observed with melvin, psychotic symptoms of delusions, bizarre thinking, obsessions, paranoia, ruminations illogical thoughts, flight of ideas or having poor insight and judgement. Patient has normal mentation, declines further hospitalization on a voluntary status and meets criteria for discharge today. MENTAL STATUS EXAMINATION ON DISCHARGE: Patient is a 45 -year-old Single, Unemployed, Domiciled , male, who reports that he made a suicidal statement when he was arrested for driving while intoxicated. Speech: Is fluid, spontaneous, normal rate, tone and volume Language skills are intact Thought processes including: linear and goal oriented Thought content: reports depression and anxiety. Denies suicidal/homicidal ideation, planning or intent. Abstract reasoning, and computation: fair Description of associations: denies, none observed Description of abnormal or psychotic thoughts: denies, none observed. Judgment: fair Insight: fair Orientation: alert and oriented to person, place, time and situation Recent and remote memory: intact Attention span and concentration: good Language: expansive Fund of knowledge: average Mood: Depressed Mood - states his depression is that he is missing his sivan pierre's graduation due to his admission Affect: constricted MEDICATIONS ON DISCHARGE: See Medication Reconciliation PLAN/FOLLOWUP ARRANGEMENTS: The amount of time spent in the coordination of care for this patient was approximately 25 minutes. ETOH/Disorder Med Rx ETOH/DRUG DISORDER RX: Offrd @ d/c & pt refused Vital Signs/I&Os Vital Signs Date Time Temp Pulse Resp B/P (MAP) Pulse Ox O2 Delivery O2 Flow Rate FiO2 04/16/21 06:00 116 128/74 04/16/21 05:58 98.5 18 95 Room Air Medications Scheduled Levothyroxine Sodium (Levothyroxine Sodium) 112 Mcg Tablet, 112 MCG PO DAILY, (Reported) Lurasidone HCl (Latuda) 60 Mg Tablet, 60 MG PO QPM, (Reported) TAKEN AFTER EVENING MEAL Nicotine (Nicotine Patch) 21 Mg Patch.td24, 1 PATCH TD DAILY for Nicotine Withdrawal, #7 Rosuvastatin Calcium (Rosuvastatin Calcium) 20 Mg Tablet, 20 MG PO QPM, (Reported) TAKEN AFTER EVENING MEAL Tadalafil (Cialis) 20 Mg Tablet, 20 MG PO ASDIRECTED, (Reported) Scheduled PRN Clonazepam (Clonazepam) 1 Mg Tablet, 1 MG PO BID PRN for ANXIETY/AGITATION, (Reported) Allergies Coded Allergies: prochlorperazine (Verified Allergy, Severe, PARALYSIS, 01/29/19) shellfish derived (Verified Allergy, Severe, PARALYSIS, 01/29/19) MAKAYLA CALLEJAS NP Apr 16, 2021 11:52
== END 2021-04-16 14:00 | disposition home or self-care (01) | DRG 753 ==
LOC: M ED 21:51 → M ED INP 04-15 11:53 → M PSY 04-15 16:06
PROVIDERS: ADMIT Psychiatry & Neurology Psychiatry; ATTEND Psychiatry & Neurology Psychiatry
DX: F31.9 Bipolar disorder, unspecified (principal); F17.290 Nicotine dependence, other tobacco product, uncomplicated; F10.10 Alcohol abuse, uncomplicated; Z91.5 Personal history of self-harm; Z79.899 Other long term (current) drug therapy; Z88.8 Allergy status to other drugs, medicaments and biological substances; Z91.013 Allergy to seafood; Z65.3 Problems related to other legal circumstances; Z56.0 Unemployment, unspecified; Z63.0 Problems in relationship with spouse or partner

== ENCOUNTER → 2021-06-11 | Outpatient (CLI) | payer BC ==
[~2021-06-11] MED LIST changes: +CIAL20TA PO; +LATU1TAB PO; +LEVO112T2 PO; +ROSU20TA5 PO
== END ==
LOC: M OUTALCOH 07:35
PROVIDERS: ATTEND Psychiatry & Neurology Psychiatry
DX: Z03.89 Encounter for observation for other suspected diseases and conditions ruled out (principal)

== ENCOUNTER 2021-07-15 13:32 | Outpatient (RCR) | payer BC | END 2021-07-18 | LOC: M OUTALCOH 13:32 | PROVIDERS: ATTEND Psychiatry & Neurology Psychiatry | DX: F17.200 Nicotine dependence, unspecified, uncomplicated (principal) | CPT/HCPCS: 90834; H0050 ==

== ENCOUNTER → 2021-08-17 | Outpatient (RCR) | payer BC | LOC: M OUTALCOH 07-20 14:52 | PROVIDERS: ATTEND Psychiatry & Neurology Psychiatry | DX: F10.10 Alcohol abuse, uncomplicated (principal); F17.200 Nicotine dependence, unspecified, uncomplicated ==

== ENCOUNTER 2021-09-15 15:48 | Outpatient (RCR) | payer BC | END 2021-09-17 | LOC: M OUTALCOH 15:48 | PROVIDERS: ATTEND Psychiatry & Neurology Psychiatry | DX: F17.200 Nicotine dependence, unspecified, uncomplicated (principal); F10.10 Alcohol abuse, uncomplicated ==

== ENCOUNTER 2021-10-01 16:00 | Outpatient (RCR) | payer BC | END 2021-10-18 | LOC: M OUTALCOH 16:00 | PROVIDERS: ATTEND Psychiatry & Neurology Psychiatry | DX: F10.10 Alcohol abuse, uncomplicated (principal); F17.200 Nicotine dependence, unspecified, uncomplicated ==

== ENCOUNTER → 2023-07-14 | Outpatient (CLI) | payer BC ==
[~2023-07-14] MED LIST changes: +ATEN25TA PO; +COLA100C5 PO; +FLUO40CA PO; +FOLI1TAB11 PO; +IBUP-1022 PO; +ISOVUE-370 76% 100ML VIAL As Ordered ONE; +OLAN1TAB16; +OLAN2.5T25 PO; +OXAZ10CA3 PO; +PERC5TAB12 PO; -ROSU20TA5 PO; +ROSU20TA61 PO; +THIA100TA PO; +VITMTA PO
== END ==
LOC: M RAD 15:55
PROVIDERS: ATTEND Nurse Practitioner Family
DX: N28.1 Cyst of kidney, acquired (principal)
CPT/HCPCS: 74170; Q9967

== ENCOUNTER → 2023-08-21 | Outpatient (CLI) | payer BC ==
[~2023-08-21] MED LIST changes: -ISOVUE-370 76% 100ML VIAL As Ordered ONE
== END ==
LOC: M OUTALCOH 07:33
PROVIDERS: ATTEND Psychiatry & Neurology Psychiatry
DX: F10.10 Alcohol abuse, uncomplicated (principal)

== ENCOUNTER → 2023-08-30 | Outpatient (CLI) | payer BC ==
[~2023-08-30] MED LIST changes: +ADDE15CA3 PO; +ADDE30CA3 PO; +CLONI1TA PO; +LIDOCAINE 1% MDV 20ML VIAL As Ordered ONE; +LISI5TAB11 PO; +SUMA25TA3 PO
[2023-08-30 07:40] VITALS: TEMP 98.1
[2023-08-30 07:56] LABS: HEMATOCRIT 49.6 % (42.0-52.0); HEMOGLOBIN 16.5 g/dl (13.5-17.5); MEAN CORPUSCULAR HGB CONC 33.3 g/dl (32.0-36.5); MEAN CORPUSCULAR VOLUME 99.2 fl (80.0-96.0); PLATELET COUNT, AUTOMATED 475 10^3/uL (150-450)
[2023-08-30 08:09] LABS: INR 1.05; PROTHROMBIN TIME 13.4 SECONDS (12.5-14.5)
[2023-08-30 10:30] VITALS: BP 138/85; O2SAT 98
== END ==
LOC: M IRPRO 07:16
PROVIDERS: ATTEND Nurse Practitioner Family
DX: K76.9 Liver disease, unspecified (principal)

== ENCOUNTER 2023-09-14 16:00 | Outpatient (RCR) | payer BC ==
[~2023-09-14 16:00] MED LIST changes: -LIDOCAINE 1% MDV 20ML VIAL As Ordered ONE
== END 2023-09-17 ==
LOC: M OUTALCOH 16:00
PROVIDERS: ATTEND Psychiatry & Neurology Psychiatry
DX: F10.20 Alcohol dependence, uncomplicated (principal); F17.200 Nicotine dependence, unspecified, uncomplicated

== ENCOUNTER 2023-10-12 12:48 | Outpatient (RCR) | payer BC, MEDICAID | END 2023-10-18 | LOC: M OUTALCOH 12:48 | PROVIDERS: ATTEND Psychiatry & Neurology Psychiatry | DX: F10.20 Alcohol dependence, uncomplicated (principal); F17.200 Nicotine dependence, unspecified, uncomplicated ==

== ENCOUNTER → 2023-10-17 | Outpatient (CLI) | payer BC, MEDICAID ==
[~2023-10-17] MED LIST changes: +CHOL50002 PO; +TRAZ-252 PO
[2023-10-17 14:50] LABS: HEMATOCRIT 49.4 % (42.0-52.0); HEMOGLOBIN 16.6 g/dl (13.5-17.5); MEAN CORPUSCULAR HGB CONC 33.6 g/dl (32.0-36.5); MEAN CORPUSCULAR VOLUME 95.4 fl (80.0-96.0); PLATELET COUNT, AUTOMATED 481 10^3/uL (150-450); RED BLOOD COUNT 5.18 10^6/uL (4.30-6.10); WHITE BLOOD COUNT 9.7 10^3/uL (4.0-10.0)
[2023-10-17 15:15] LABS: ALBUMIN 3.8 G/DL (3.2-5.2); ALKALINE PHOSPHATASE 68 U/L (46-116); ALT/SGPT 18 U/L (7.0-40); AST/SGOT 14 U/L (<34); BILIRUBIN,TOTAL 0.5 MG/DL (0.3-1.2); BLOOD UREA NITROGEN 10 MG/DL (9-23); CALCIUM LEVEL 9.4 MG/DL (8.5-10.1); CARBON DIOXIDE LEVEL 30 MMOL/L (20-31); CHLORIDE LEVEL 102 MMOL/L (98-107); GLOMERULAR FILTRATION RATE > 60.0 (>56); GLUCOSE, FASTING 90 MG/DL (60-100); POTASSIUM SERUM 4.1 MMOL/L (3.5-5.1); SODIUM LEVEL 137 MMOL/L (136-145); TOTAL PROTEIN 7.7 G/DL (5.7-8.2)
== END ==
LOC: M RAD 13:46
PROVIDERS: ATTEND Urology
DX: Z01.818 Encounter for other preprocedural examination (principal); N28.89 Other specified disorders of kidney and ureter

== ENCOUNTER 2023-10-26 15:00 | Outpatient (RCR) | payer BC ==
[~2023-10-26 15:00] MED LIST changes: -KLON1TAB PO; +KLON1TAB13 PO
[2023-11-02] MEDS ORDERED: ACET-683 PO (08:20)
[2023-11-03] MEDS ORDERED: PERCOCET PO (13:04)
[2023-11-03] MEDS ORDERED: COLA100C5 PO (13:04)
== END 2023-11-16 ==
LOC: M OUTALCOH 15:00
PROVIDERS: ATTEND Psychiatry & Neurology Psychiatry
DX: F10.20 Alcohol dependence, uncomplicated (principal); F17.200 Nicotine dependence, unspecified, uncomplicated

== ENCOUNTER 2023-11-02 07:09 | Inpatient (IN) | payer MEDICAID, OTHER ==
[~2023-11-02] VITALS: Ht 170.2 cm; Wt 68.8 kg
[~2023-11-02 07:09] MED LIST changes: +KLON1TAB PO; -KLON1TAB13 PO
[2023-11-02] MEDS: LR 1,000 ML IV SCH (07:15)
[2023-11-02] MEDS ORDERED: ACET-683 PO (08:20)
[2023-11-02] MEDS ORDERED: HOME MED LIST COMPLETE! XX SCH (08:25)
[2023-11-02] MEDS ORDERED: ACETAMINOPHEN TAB 650MG DOSE (2X325MG) PO PRN (08:35)
[2023-11-02] MEDS ORDERED: fentaNYL 100 MCG/2 ML INJECTION As Ordered ONE (08:59)
[2023-11-02] MEDS ORDERED: LIDOCAINE 2% 100MG/5ML SDV (FOR ANES.) As Ordered ONE (08:59)
[2023-11-02] MEDS ORDERED: ePHEDrine SULFATE 25 MG/5 ML(5MG/ML) SYRINGE As Ordered ONE (08:59)
[2023-11-02] MEDS ORDERED: MIDAZOLAM INJ 2MG/2ML VIAL As Ordered ONE (08:59)
[2023-11-02] MEDS ORDERED: SUGAMMADEX SODIUM 500 MG/5 ML VIAL (BRIDION) As Ordered ONE (08:59)
[2023-11-02] MEDS ORDERED: ROCURONIUM BROMIDE 50MG/5ML VIAL As Ordered ONE (08:59)
[2023-11-02] MEDS ORDERED: ACETAMINOPHEN 1000MG 100ML IV BAG As Ordered ONE (08:59)
[2023-11-02] MEDS ORDERED: propofoL 200 MG/20 ML VIAL As Ordered ONE (08:59)
[2023-11-02] MEDS ORDERED: HYDROmorphone HCL 2MG/ML 1ML VIAL As Ordered ONE (08:59)
[2023-11-02] MEDS ORDERED: ONDANSETRON 4MG 2ML VIAL As Ordered ONE (08:59)
[2023-11-02] MEDS: ceFAZolin SOD 2 GM in IV 1 EA IV ONE (09:00)
[2023-11-02] MEDS ORDERED: PHENYLephrine 500MCG 5ML (100MCG/ML) SYRINGE As Ordered ONE (09:03)
[2023-11-02] MEDS ORDERED: MANNITOL 25% 12.5GM 50ML VIAL As Ordered ONE (09:14)
[2023-11-02] MEDS ORDERED: VASOPRESSIN INJ 20UNITS/ML 1ML VIAL As Ordered ONE (11:15)
[2023-11-02] MEDS: ceFAZolin 2 GM/D5W 50 ML IV BAG As Ordered ONE (12:31)
[2023-11-02] MEDS: LIDOCAINE 1% SDV 30ML VIAL As Ordered ONE (13:39)
[2023-11-02] MEDS ORDERED: ONDANSETRON 4MG 2ML VIAL IV PRN (13:55)
[2023-11-02] MEDS ORDERED: oxyCODONE 5MG TAB PO PRN (13:55)
[2023-11-02] MEDS: fentaNYL 100 MCG/2 ML INJECTION IV PRN (14:08)
[2023-11-02] MEDS: NS 1,000 ML IV SCH (15:00)
[2023-11-02] MEDS: PERCOCET 5MG/325MG TAB PO PRN ×2 (15:04→22:30)
[2023-11-02 15:07] LABS: HEMATOCRIT 44.3 % (42.0-52.0); HEMOGLOBIN 14.8 g/dl (13.5-17.5); MEAN CORPUSCULAR HEMOGLOBIN 32.3 pg (27.0-33.0); MEAN CORPUSCULAR HGB CONC 33.4 g/dl (32.0-36.5); MEAN CORPUSCULAR VOLUME 96.7 fl (80.0-96.0); PLATELET COUNT, AUTOMATED 358 10^3/uL (150-450); RED BLOOD COUNT 4.58 10^6/uL (4.30-6.10); WHITE BLOOD COUNT 22.9 10^3/uL (4.0-10.0)
[2023-11-02 15:40] LABS: BLOOD UREA NITROGEN 13 MG/DL (9-23); CALCIUM LEVEL 8.6 MG/DL (8.5-10.1); CARBON DIOXIDE LEVEL 27 MMOL/L (20-31); CHLORIDE LEVEL 103 MMOL/L (98-107); CREATININE FOR GFR 1.25 MG/DL (0.70-1.30); GLOMERULAR FILTRATION RATE > 60.0 (>56); GLUCOSE, FASTING 130 MG/DL (60-100); POTASSIUM SERUM 4.4 MMOL/L (3.5-5.1); SODIUM LEVEL 136 MMOL/L (136-145)
[2023-11-02 15:45] VITALS: BP 132/86; TEMP 97.2; O2SAT 93
[2023-11-02 17:00] VITALS: BP 134/87; TEMP 97.3; O2SAT 94
[2023-11-02 18:00] VITALS: BP 143/91; TEMP 97.3; O2SAT 93
[2023-11-02] MEDS: PERCOCET 5MG/325MG TAB PO ONE (18:13)
[2023-11-02 19:00] VITALS: BP 140/90; TEMP 97.2; O2SAT 90
[2023-11-02 20:00] VITALS: BP 149/93; TEMP 97.4; O2SAT 92
[2023-11-02] MEDS: DOCUSATE SODIUM 100MG CAPSULE PO SCH (20:25)
[2023-11-02] MEDS: ROSUVASTATIN 10 MG TAB (CRESTOR) PO SCH (20:25)
[2023-11-02] MEDS: ceFAZolin SOD 1 GM in D5W MINI-BAG PLUS 50 ML IV SCH (20:26)
[2023-11-02] MEDS: ONDANSETRON 4MG 2ML VIAL IV PRN (20:50)
[2023-11-03] VITALS: BP 148/93; TEMP 97.4; O2SAT 91
[2023-11-03 04:00] VITALS: BP 142/89; TEMP 97.8; O2SAT 93
[2023-11-03] MEDS: LEVOTHYROXINE 112MCG TABLET (0.112MG) PO SCH (05:46)
[2023-11-03 06:11] LABS: HEMATOCRIT 41.5 % (42.0-52.0); HEMOGLOBIN 14.2 g/dl (13.5-17.5); MEAN CORPUSCULAR HEMOGLOBIN 32.5 pg (27.0-33.0); MEAN CORPUSCULAR HGB CONC 34.2 g/dl (32.0-36.5); PLATELET COUNT, AUTOMATED 305 10^3/uL (150-450); RED BLOOD COUNT 4.37 10^6/uL (4.30-6.10); WHITE BLOOD COUNT 17.9 10^3/uL (4.0-10.0)
[2023-11-03 06:35] LABS: CREATININE FOR GFR 1.45 MG/DL (0.70-1.30); GLOMERULAR FILTRATION RATE 54.8 (>56); POTASSIUM SERUM 3.8 MMOL/L (3.5-5.1)
[2023-11-03 08:00] VITALS: BP 147/92; TEMP 98.1; O2SAT 91
[2023-11-03 08:37] VITALS: BP 147/91
[2023-11-03] MEDS: lisinopriL 5 MG TAB PO SCH (08:37)
[2023-11-03] MEDS: cloNIDine 0.1MG TABLET PO SCH (08:38)
[2023-11-03 12:00] VITALS: BP 116/70; TEMP 97.1; O2SAT 92
[2023-11-03] MEDS ORDERED: COLA100C5 PO (13:04)
[2023-11-03] MEDS ORDERED: PERCOCET PO (13:04)
== END 2023-11-03 18:00 | disposition home or self-care (01) | DRG 442 ==
LOC: M OR 07:09 → M MSPAV 14:45
PROVIDERS: ADMIT Urology; ATTEND Urology
PROC: 8E0W4CZ Robotic Assisted Procedure of Trunk Region, Percutaneous Endoscopic Approach (ICD-10-PCS; 2023-11-02)
PROC: 0TB04ZZ Excision of Right Kidney, Percutaneous Endoscopic Approach (ICD-10-PCS; principal; 2023-11-02 08:30)
DX: C64.1 Malignant neoplasm of right kidney, except renal pelvis (principal)

== ENCOUNTER → 2023-11-20 | Outpatient (CLI) | payer OTHER ==
[~2023-11-20] MED LIST changes: +ACET-683 PO; +PERCOCET PO
[2023-11-20 16:56] LABS: HEMATOCRIT 40.4 % (42.0-52.0); HEMOGLOBIN 13.5 g/dl (13.5-17.5); MEAN CORPUSCULAR HEMOGLOBIN 31.8 pg (27.0-33.0); MEAN CORPUSCULAR HGB CONC 33.4 g/dl (32.0-36.5); MEAN CORPUSCULAR VOLUME 95.3 fl (80.0-96.0); PLATELET COUNT, AUTOMATED 766 10^3/uL (150-450); RED BLOOD COUNT 4.24 10^6/uL (4.30-6.10); WHITE BLOOD COUNT 9.3 10^3/uL (4.0-10.0)
[2023-11-20 17:19] LABS: ALBUMIN 3.4 G/DL (3.2-5.2); ALKALINE PHOSPHATASE 91 U/L (46-116); ALT/SGPT 23 U/L (7.0-40); AST/SGOT 16 U/L (<34); BILIRUBIN,TOTAL 0.4 MG/DL (0.3-1.2); BLOOD UREA NITROGEN 14 MG/DL (9-23); CARBON DIOXIDE LEVEL 31 MMOL/L (20-31); CHLORIDE LEVEL 102 MMOL/L (98-107); CREATININE FOR GFR 0.93 MG/DL (0.70-1.30); GLOMERULAR FILTRATION RATE > 60.0 (>56); GLUCOSE, FASTING 96 MG/DL (60-100); POTASSIUM SERUM 4.4 MMOL/L (3.5-5.1); SODIUM LEVEL 138 MMOL/L (136-145)
== END ==
LOC: M LAB 16:08
PROVIDERS: ATTEND Urology
DX: C64.1 Malignant neoplasm of right kidney, except renal pelvis (principal)

== ENCOUNTER → 2023-12-06 | Outpatient (CLI) | payer OTHER ==
[~2023-12-06] MED LIST changes: -KLON1TAB PO; +KLON1TAB13 PO
[2023-12-06 15:06] LABS: MEAN CORPUSCULAR HGB CONC 33.3 g/dl (32.0-36.5); MEAN CORPUSCULAR VOLUME 95.9 fl (80.0-96.0); PLATELET COUNT, AUTOMATED 404 10^3/uL (150-450); RED BLOOD COUNT 4.38 10^6/uL (4.30-6.10); WHITE BLOOD COUNT 8.9 10^3/uL (4.0-10.0)
== END ==
LOC: M LAB 14:45
PROVIDERS: ATTEND Urology
DX: C64.1 Malignant neoplasm of right kidney, except renal pelvis (principal)

== ENCOUNTER 2023-12-15 15:00 | Outpatient (RCR) | payer BC | END 2023-12-17 | LOC: M OUTALCOH 15:00 | PROVIDERS: ATTEND Psychiatry & Neurology Psychiatry | DX: F10.20 Alcohol dependence, uncomplicated (principal); F17.200 Nicotine dependence, unspecified, uncomplicated; F12.10 Cannabis abuse, uncomplicated ==

== ENCOUNTER 2024-01-15 14:58 | Outpatient (RCR) | payer BC | END 2024-01-16 | LOC: M OUTALCOH 14:58 | PROVIDERS: ATTEND Psychiatry & Neurology Psychiatry | DX: F10.20 Alcohol dependence, uncomplicated (principal); F17.200 Nicotine dependence, unspecified, uncomplicated; F12.10 Cannabis abuse, uncomplicated ==

== ENCOUNTER 2024-02-05 14:50 | Outpatient (RCR) | payer BC ==
[~2024-02-05 14:50] MED LIST changes: -ROSU10TA6 PO; +ROSU10TA61 PO
== END 2024-02-16 ==
LOC: M OUTALCOH 14:50
PROVIDERS: ATTEND Psychiatry & Neurology Psychiatry
DX: F10.20 Alcohol dependence, uncomplicated (principal); F12.10 Cannabis abuse, uncomplicated; F17.200 Nicotine dependence, unspecified, uncomplicated

== ENCOUNTER 2024-03-14 09:53 | Outpatient (RCR) | payer BC | END 2024-03-17 | LOC: M OUTALCOH 09:53 | PROVIDERS: ATTEND Psychiatry & Neurology Psychiatry | DX: F10.20 Alcohol dependence, uncomplicated (principal); F17.200 Nicotine dependence, unspecified, uncomplicated; F12.10 Cannabis abuse, uncomplicated ==

== ENCOUNTER 2024-04-01 16:00 | Outpatient (RCR) | payer BC, OTHER | END 2024-04-17 | LOC: M OUTALCOH 16:00 | PROVIDERS: ATTEND Psychiatry & Neurology Psychiatry | DX: F10.20 Alcohol dependence, uncomplicated (principal); F17.200 Nicotine dependence, unspecified, uncomplicated; F12.10 Cannabis abuse, uncomplicated ==

== ENCOUNTER → 2024-04-03 | Outpatient (REF) | LOC: M RAD 12:27 | PROVIDERS: ATTEND Internal Medicine | DX: R52 Pain, unspecified (principal) ==

== ENCOUNTER 2024-04-11 10:41 | Outpatient (RCR) | payer OTHER | END 2024-04-17 | LOC: M OUTALCOH 10:41 | PROVIDERS: ATTEND Psychiatry & Neurology Psychiatry | DX: F10.20 Alcohol dependence, uncomplicated (principal); F12.10 Cannabis abuse, uncomplicated; F17.200 Nicotine dependence, unspecified, uncomplicated ==

== ENCOUNTER 2024-04-25 10:49 | Outpatient (RCR) | payer OTHER | END 2024-05-18 | LOC: M OUTALCOH 10:49 | PROVIDERS: ATTEND Psychiatry & Neurology Psychiatry | DX: F10.20 Alcohol dependence, uncomplicated (principal); F12.10 Cannabis abuse, uncomplicated; F17.200 Nicotine dependence, unspecified, uncomplicated ==

== ENCOUNTER 2024-05-27 09:54 | Outpatient (RCR) | payer OTHER | END 2024-06-17 | LOC: M OUTALCOH 09:54 | PROVIDERS: ATTEND Psychiatry & Neurology Psychiatry | DX: F10.20 Alcohol dependence, uncomplicated (principal); F17.200 Nicotine dependence, unspecified, uncomplicated ==

== ENCOUNTER → 2024-06-04 | Outpatient (CLI) | payer OTHER ==
[2024-06-04 11:54] LABS: BLOOD UREA NITROGEN 20 MG/DL (9-23); CALCIUM LEVEL 9.1 MG/DL (8.5-10.1); CARBON DIOXIDE LEVEL 29 MMOL/L (20-31); CHLORIDE LEVEL 102 MMOL/L (98-107); GLOMERULAR FILTRATION RATE > 60.0 (>56); GLUCOSE, FASTING 95 MG/DL (60-100); POTASSIUM SERUM 4.8 MMOL/L (3.5-5.1); SODIUM LEVEL 137 MMOL/L (136-145)
== END ==
LOC: M LAB 10:09
PROVIDERS: ATTEND Urology
DX: C64.1 Malignant neoplasm of right kidney, except renal pelvis (principal)

== ENCOUNTER → 2024-06-14 | Outpatient (CLI) | payer OTHER ==
[~2024-06-14] MED LIST changes: +ISOVUE-370 76% 100ML VIAL As Ordered ONE
== END ==
LOC: M RAD 12:44
PROVIDERS: ATTEND Urology
DX: C64.1 Malignant neoplasm of right kidney, except renal pelvis (principal)
CPT/HCPCS: 74170; Q9967

== ENCOUNTER 2024-07-08 09:55 | Outpatient (RCR) | payer OTHER ==
[~2024-07-08 09:55] MED LIST changes: -ISOVUE-370 76% 100ML VIAL As Ordered ONE; -OLAN2.5T25 PO; +OLAN2.5T53 PO; -ROSU20TA61 PO; +ROSU20TA86 PO
[2024-07-16] MEDS ORDERED: CLON0.5T2 (10:15)
[2024-07-18] MEDS ORDERED: CLON0.5T17 PO (07:41)
== END 2024-07-18 ==
LOC: M OUTALCOH 09:55
PROVIDERS: ATTEND Psychiatry & Neurology Psychiatry
DX: F10.20 Alcohol dependence, uncomplicated (principal); F17.200 Nicotine dependence, unspecified, uncomplicated

== ENCOUNTER 2024-07-16 09:50 | Emergency (ER) | payer OTHER ==
[~2024-07-16] VITALS: Ht 170.2 cm; Wt 71.9 kg
[2024-07-16 09:55] VITALS: BP 118/65; TEMP 97.9; O2SAT 99
[2024-07-16] MEDS ORDERED: CLON0.5T2 (10:15)
[2024-07-16] MEDS: DOXYCYCLINE HYCLATE 100MG TABLET PO ONE (12:04)
== END 2024-07-16 12:10 | disposition home or self-care (01) ==
LOC: M ED 09:50
DX: S30.861A Insect bite (nonvenomous) of abdominal wall, initial encounter (principal); Y92.828 Other wilderness area as the place of occurrence of the external cause; Y93.9 Activity, unspecified; Y99.9 Unspecified external cause status; I10 Essential (primary) hypertension; F17.290 Nicotine dependence, other tobacco product, uncomplicated; Z88.8 Allergy status to other drugs, medicaments and biological substances; Z91.013 Allergy to seafood; Z79.1 Long term (current) use of non-steroidal anti-inflammatories (NSAID); Z79.899 Other long term (current) drug therapy